=== PATIENT | male | born 1980 | race Caucasian/White ===

== ENCOUNTER 2016-09-07 10:07 | Inpatient (IN) | payer OTHER, BC ==
[~2016-09-07] VITALS: Ht 175.3 cm; Wt 58.5 kg
--- NOTE | 2016-09-07 10:37 | NUR ---
PRE ASSESSMENT: PT PRE ASSESSED IN INTAKE. HE DENIES SEIZURES. HE IS ALLERGIC TO PCN. HE REPORTS DRINKING 18-20 BEERS DAILY AND SNORTING COCAINE( 1/4 GRAM) A FEW TIMES WEEKLY. HE STATES HE HAS A 20 YEAR HISTORY BUT HAS BEEN DRINKING AND USING IN THIS PATTERN FOR 6 MONTHS ,SINCE HIS LEFT HIM . HE STATES HE IS UNABLE TO STOP DRINKING DESPITE NEGATIVE CONSEQUENCES. HE DENIES MEDICAL HX. BP 149/109 P 122 R 18 O2SAT 98% T 98.4. Addendum: 09/07/16 at 1119 by FRANCK AVELAR RN PT STATES HE LAST DRANK AT 11PM LAST NIGHT 10 BEERS AND SNORTED 1/2 GRAM COCAINE.
[2016-09-07] MEDS ORDERED: ACETAMINOPHEN 325 MG TABLET PO PRN (11:30)
[2016-09-07] MEDS ORDERED: diphenhydrAMINE 50 MG CAPSULE PO PRN (11:30)
[2016-09-07] MEDS ORDERED: MAGNESIUM HYDROXIDE 30 ML LIQUID UDC PO PRN (11:30)
[2016-09-07] MEDS ORDERED: LORAZEPAM 1 MG TABLET PO PRN (11:30)
[2016-09-07] MEDS ORDERED: LOPERAMIDE HCL 2 MG CAPSULE PO PRN ×2 (11:30)
[2016-09-07] MEDS ORDERED: THIAMINE HCL 200 MG/2 ML VIAL IM ONE (11:30)
[2016-09-07] MEDS ORDERED: LORAZEPAM 2 MG/1 ML VIAL IM PRN (11:30)
[2016-09-07] MEDS ORDERED: ONDANSETRON ODT 4 MG TAB.RAPDIS SL PRN (11:30)
[2016-09-07] MEDS ORDERED: HYDROXYZINE PAMOATE 25 MG CAPSULE PO PRN (11:30)
[2016-09-07] MEDS ORDERED: IBUPROFEN 400 MG TABLET PO PRN (11:30)
[2016-09-07] MEDS ORDERED: MIRALAX 17 GM POWD.PACK PO PRN (11:30)
[2016-09-07] MEDS ORDERED: MAG HYDROX/AL HYDROX/SIMETH 30 ML LIQUID UDC PO PRN (11:30)
[2016-09-07] MEDS ORDERED: ONDANSETRON 4 MG/2 ML VIAL IM PRN (11:30)
[2016-09-07 12:00] VITALS: BP 140/99
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
[2016-09-07 13:03] LABS: BASOPHILS % (AUTO) 0.5 % (0.0-2.0); EOSINOPHILS # (AUTO) 0.1 K/uL (0.0-0.7); EOSINOPHILS % (AUTO) 1.5 % (0.0-7.0); HEMATOCRIT 43.7 % (40-50); HEMOGLOBIN 15.3 G/DL (14.0-18.0); LYMPHOCYTES # (AUTO) 1.4 K/UL (0.8-4.8); MEAN CORPUSCULAR HEMOGLOBIN 32.4 UUG (27.0-31.0); MEAN CORPUSCULAR HGB CONC 35 g/dL (32.0-37.0); MEAN CORPUSCULAR VOLUME 92.8 FL (82.0-92.0); MONOCYTES # (AUTO) 0.8 K/UL (0.1-1.30); MONOCYTES % (AUTO) 10.8 % (0.0-11.0); NEUTROPHILS # (AUTO) 4.9 K/UL (1.8-8.9); NEUTROPHILS % (AUTO) 67.2 % (38.5-71.5); PLATELET COUNT (AUTO) 211 K/UL (150-450); RED BLOOD CELL COUNT(AUTO) 4.71 MIL/UL (4.7-6.1); RED CELL DISTRIBUTION WIDTH 12.3 % (11.5-14.5); WHITE BLOOD COUNT (AUTO) 7.2 K/UL (4.0-11.2)
[2016-09-07 13:11] LABS: *AMPHETAMINE, URINE NEGATIVE (NEGATIVE); *BARBITURATE, URINE NEGATIVE (NEGATIVE); *CANNABINOID, URINE NEGATIVE (NEGATIVE); *COCCAINE, URINE POSITIVE (NEGATIVE); *OPIATE, URINE NEGATIVE (NEGATIVE); *PHENCYCLIDINE SCREEN,URINE NEGATIVE (NEGATIVE)
[2016-09-07] MEDS: LORAZEPAM 1 MG TABLET PO PRN ×2 (13:14→15:41)
--- NOTE | 2016-09-07 13:15 | NUR ---
PRN ATIVAN1 MG PO GIVEN FOR CIWA 6. HE C/O SEVERE ANXIETY AND RESTLESSNESS. BP ELEVATED.
[2016-09-07 13:25] LABS: ALANINE AMINOTRANSFERASE 82 U/L (16-63); ALBUMIN 4.7 g/dL (3.4-5.0); ALKALINE PHOSPHATASE 70 U/L (50-136); AMYLASE 121 U/L (25-115); ASPARTATE AMINOTRANSFERASE 115 U/L (15-37); BILIRUBIN,TOTAL 0.6 mg/dL (0.2-1.0); CALCIUM 8.6 mg/dL (8.5-10.1); CARBON DIOXIDE 24 mmol/L (21-32); CHLORIDE 99 mmol/L (98-107); CREATININE 0.6 mg/dL (0.6-1.3); GFR > 130 mL/min (>60); GLUCOSE 91 mg/dL (74-106); LIPASE 287 U/L (73-393); MAGNESIUM 2.3 mg/dL (1.8-2.4); POTASSIUM 3.8 mmol/L (3.5-5.1); SODIUM SERUM 138 mmol/L (136-145); TOTAL PROTEIN, SERUM 8.4 g/dL (6.4-8.2); UREA NITROGEN, BLOOD 5 mg/dL (7-18)
[2016-09-07 13:29] LABS: ETHANOL 285 MG/DL (0-0)
[2016-09-07 13:36] LABS: THYROID STIMULATING HORMONE 1.739 mIU/mL (0.358-3.740)
[2016-09-07 13:45] VITALS: BP 122/76
--- NOTE | 2016-09-07 13:45 | NUR ---
PRN ATIVAN ONLY MILDLY EFFECTIVE. CIWA 5
--- NOTE | 2016-09-07 14:22 | NUR ---
PT DENIES HAVING A PCP.
--- NOTE | 2016-09-07 15:45 | NUR ---
PT C/O ANXIETY AND STATES "IT FEELS LIKE MY HEART IS BEATING OUT OF MY CHEST". CIWA 6.PRN ATIVAN 1 MG PO GIVEN TO MANAGE S/S OF W/D. WILL MONITOR EFFECTIVENESS.
[2016-09-07 16:00] VITALS: BP 118/78
--- NOTE | 2016-09-07 16:30 | NUR ---
PT IS ASLEEP. ATIVAN EFFECTIVE. ROBBY DEFERRED. Addendum: 09/07/16 at 1817 by FRANCK AVELAR RN PT S[place]. ROBBY 3. ATIVAN EFFECTIVE.
--- NOTE | 2016-09-07 18:19 | NUR ---
END OF SHIFT: PT ADMITTED THIS AFTERNOON FOR ETOH DEPENDENCE. HE WAS GIVEN ATIVAN 1 MG PO PRN X 2 AND EFFECTIVE. LAST CIWA 3. ENCOURAGED INCREASED FLUIDS FOR HYDRATION. BP WAS ELEVATED ON ADMISSION BUT ATIVAN EFFECTIVE IN BRINGING BP DOWN. PT IS ASLEEP NOW WITH RESPIRATIONS EVEN AND UNLABORED. CALL SCHWARTZ IN REACH. BED LOCKED AND IN LOWEST POSITION. WILL CONTINUE TO PROVIDE SUPPORT. WILL PASS SHIFT REPORT TO ONCOMING NIGHT NURSE.
--- NOTE | 2016-09-07 19:15 | NUR ---
START OF SHIFT Received 35 year old male patient admitted on 09/07/16 for ETOH dependency. Pt is full code with allergy to PCN. He denies any PMHx. He reports using ETOH (beer) 18-20 beers daily for 20 years but 6 months at this rate. His last dose was 10 beers on 09/06/16. And Cocaine (snort) 1/4 gram three-five times per week. Last dose was 1/2 gram cocaine on 09/06/16. Per endorsement pt received PRN Ativan 1 mg x2. Pt is alert and oriented x4, breathing is even and unlabored. Pt is safe with bed locked in lowest position, side rails up x2 and call light within reach. Will continue to monitor.
[2016-09-07 20:00] VITALS: BP 116/83
[2016-09-08] VITALS: BP 120/84
--- NOTE | 2016-09-08 | NUR ---
CIWA DEFERRED CIWA deferred d/t order is Q4H while awake. Pt lying in bed with eyes closed noted to be asleep. Respirations 16, breathing is even and unlabored. Safety measures in place. Will continue to monitor.
[2016-09-08 04:00] VITALS: BP 112/75
[2016-09-08] MEDS: DICYCLOMINE HCL 20 MG TABLET PO PRN (04:07)
[2016-09-08] MEDS: LORAZEPAM 1 MG TABLET PO PRN (04:08)
--- NOTE | 2016-09-08 04:08 | NUR ---
PRN ATIVAN/BENTYL Pt complains of " really bad anxiety" and abdominal cramps 12/06. PRN Ativan and Bentyl administered as ordered. CIWA:6. Respirations 16, breathing even and unlabored. Safety measures in place. Will monitor effectiveness.
--- NOTE | 2016-09-08 05:08 | NUR ---
PRN ATIVAN/BENTYL REASSESSMENT PRN medications effective. Pt lying in bed with eyes closed and is asleep. No facial grimacing noted. Respirations 16, breathing even and unlabored. Safety measures in place. Will monitor.
--- NOTE | 2016-09-08 07:18 | NUR ---
END OF SHIFT Pt is a 35 year old male patient admitted on 09/07/16 for ETOH dependency. Pt is full code with allergy to PCN. He denies any PMHx. At 0408 he received PRN Ativan and Bentyl for anxiety, and abdominal spasms. He slept a total of 7 hrs, Intake: 1091 mL, Void: x2, BM: 0. CIWA: 6. Pt remains alert and oriented x4, breathing is even and unlabored. Pt is safe with bed locked in lowest position, side rails up x2 and call light within reach. Endorsed to oncoming shift.
[2016-09-08 08:00] VITALS: BP 128/84
--- NOTE | 2016-09-08 08:15 | NUR ---
START OF SHIFT: RECEIVED PT A/O X 4. HE PRESENTS WITH ANXIOUS MOOD AND CONGRUENT AFFECT. HE REPORTS A VERY RESTLESS NIGHT SLEEP AND C/O NIGHT SWEATS,ANXIETY,IRRITABILITY AND CRAVINGS. OFFERED SUPPORT. ATIVAN TAPER IN PROGRESS. CIWA 6. ENCOURAGED REST AND INCREASED FLUIDS. PPD PLANTED TO LFA.WILL CONTINUE TO MONITOR AND PROVIDE SAFE AND SUPPORTIVE ENVIRONMENT.
[2016-09-08] MEDS: LORAZEPAM 1 MG TABLET PO SCH ×4 (08:25→22:10)
[2016-09-08] MEDS: THIAMINE HCL 100 MG TABLET PO SCH (08:26)
[2016-09-08] MEDS: MULTIVITAMINS,THERAPEUTIC TABLET PO SCH (08:26)
[2016-09-08] MEDS: FOLIC ACID 1 MG TABLET PO SCH (08:26)
[2016-09-08] MEDS ORDERED: TUBERCULIN,PURIF.PROT.DERIV. 5 TU/0.1 ML TEST ID ONE (09:00)
[2016-09-08 11:21] LABS: HCV AB <0.1 s/co ratio (0.0-0.9); HEPATITIS B CORE AB, IgM Negative (Negative); HEPATITIS B SURFACE AG Negative (Negative)
[2016-09-08 12:00] VITALS: BP 123/85
[2016-09-08 16:00] VITALS: BP 118/86
--- NOTE | 2016-09-08 17:42 | NUR ---
HELD 1700 ATIVAN. CIWA DEFERRED AT 1600 PT IS ASLEEP. RESPIRATIONS EVEN AND UNLABORED. BED LOCKED AND LOW, CALL SCHWARTZ IN REACH.
--- NOTE | 2016-09-08 18:40 | NUR ---
END OF SHIFT: PT CONTINUES ON ATIVAN TAPER. LAST CIWA DEFERRED. HELD 1700 MEDS PT WAS ASLEEP.CIWA 6 AT 1200 .HE SPENT MOST OF SHIFT RESTING IN BED. ENCOURAGED INCREASED FLUIDS. HE REPORTED ANXIETY AND REPORTED A HORRIBLE NIGHT OF SLEEP LAST NIGHT. VS WNL. WILL PASS SHIFT REPORT TO ONCOMING NURSE.
--- NOTE | 2016-09-08 19:15 | NUR ---
START OF SHIFT Received 35 year old male patient admitted on 09/07/16 for ETOH dependency. Pt is full code with allergy to PCN. Pt denies PMHx. He reports drinking ETOH (beer) 18-20 beers daily for 20 years. Last dose was 10 beers on 09/06/16. He is currently receiving 5 day Ativan taper and tolerating well. Per endorsement, pts 1700 dose of Ativan held d/t pt was sedated. Pt is alert and oriented x4. Breathing is even and unlabored, safety measures in place. Will continue to monitor.
[2016-09-08 20:00] VITALS: BP 121/81
[2016-09-09] VITALS: BP 113/77
[2016-09-09 04:00] VITALS: BP 111/72
--- NOTE | 2016-09-09 06:03 | NUR ---
PRN CLONIDINE Pt complains of anxiety and agitation. PRN Clonidine administered as ordered. Breathing even and unlabored. Safety measures in place. Will monitor effectiveness.
[2016-09-09] MEDS: CLONIDINE HCL 0.1 MG TABLET PO PRN (06:07)
--- NOTE | 2016-09-09 07:03 | NUR ---
PRN CLONIDINE REASSESSMENT PRN medication effective. Pt reports decrease in anxiety. Breathing even and unlabored, safety measures in place. Will monitor.
--- NOTE | 2016-09-09 07:12 | NUR ---
END OF SHIFT Pt is a 35 year old male patient admitted on 09/07/16 for ETOH dependency. Pt is full code with allergy to PCN. Pt denies PMHx. He is currently receiving 5 day Ativan taper and tolerating well. At 0603 pt received PRN clonidine d/t anxiety. He slept a total of 9 hrs, Intake: 500 mL, Void: x1, BM: 0, CIWA: 7. Pt remains alert and oriented x4. Breathing is even and unlabored, safety measures in place. Endorsed to oncoming shift.
[2016-09-09 08:00] VITALS: BP 138/92
--- NOTE | 2016-09-09 08:10 | NUR ---
START OF SHIFT: RECEIVED PT A/O X 4. HE PRESENTS ANXIOUS AND AGITATED. HE REPORTS A VERY RESTLESS NIGHT SLEEP AND C/O RESTLESSNESS, ANXIETY,IRRITABILITY AND TREMORS NOTED TO HANDS. PT STATES HE FEELS STIR CRAZY AND STATES HE IS THINKING ABOUT LEAVING. OFFERED SUPPORT AND EDUCATED PT ON IMPORTANCE OF COMPLETING DETOX. EDUCATED PT ON DISEASE PROCESS AND GAVE HIM EDUCATIONAL LITERATURE ON AA. HE STATES HE WILL STAY AND TRY TO 'STICK IT OUT". ATIVAN TAPER IN PROGRESS. CIWA 8. ENCOURAGED INCREASED FLUIDS AND ENCOURAGED ACTIVITY AND GROUP ATTENDANCE TODAY TO IMPROVE COPING SKILLS AND PREVENT RELAPSE. WILL CONTINUE TO MONITOR AND PROVIDE SAFE AND SUPPORTIVE ENVIRONMENT.
[2016-09-09 08:36] LABS: BASOPHILS % (AUTO) 0.7 % (0.0-2.0); EOSINOPHILS # (AUTO) 0.1 K/uL (0.0-0.7); EOSINOPHILS % (AUTO) 2.3 % (0.0-7.0); HEMATOCRIT 41.7 % (40-50); HEMOGLOBIN 14.6 G/DL (14.0-18.0); LYMPHOCYTES # (AUTO) 0.7 K/UL (0.8-4.8); LYMPHOCYTES % (AUTO) 13.3 % (20.5-51.5); MEAN CORPUSCULAR HEMOGLOBIN 32.9 UUG (27.0-31.0); MEAN CORPUSCULAR HGB CONC 35 g/dL (32.0-37.0); MEAN CORPUSCULAR VOLUME 93.8 FL (82.0-92.0); MONOCYTES # (AUTO) 0.8 K/UL (0.1-1.30); MONOCYTES % (AUTO) 14.1 % (0.0-11.0); NEUTROPHILS # (AUTO) 3.9 K/UL (1.8-8.9); NEUTROPHILS % (AUTO) 69.6 % (38.5-71.5); PLATELET COUNT (AUTO) 160 K/UL (150-450); RED BLOOD CELL COUNT(AUTO) 4.45 MIL/UL (4.7-6.1); RED CELL DISTRIBUTION WIDTH 12.1 % (11.5-14.5); WHITE BLOOD COUNT (AUTO) 5.5 K/UL (4.0-11.2)
[2016-09-09] MEDS: LORAZEPAM 1 MG TABLET PO SCH ×3 (08:54→21:05)
[2016-09-09] MEDS: buPROPion SR 100 MG TABLET.SA PO SCH (08:54)
[2016-09-09] MEDS: MULTIVITAMINS,THERAPEUTIC TABLET PO SCH (08:54)
[2016-09-09] MEDS: FOLIC ACID 1 MG TABLET PO SCH (08:54)
[2016-09-09] MEDS: THIAMINE HCL 100 MG TABLET PO SCH (08:54)
[2016-09-09 09:55] LABS: FOLIC ACID 17.3 NG/ML (8.6-58.9)
[2016-09-09 10:07] LABS: BILIRUBIN,DIRECT 0.1 mg/dL (0.0-0.2); BILIRUBIN,TOTAL 0.6 mg/dL (0.2-1.0); CALCIUM 9.4 mg/dL (8.5-10.1); CREATININE 0.7 mg/dL (0.6-1.3); POTASSIUM 3.6 mmol/L (3.5-5.1); TOTAL PROTEIN, SERUM 7.5 g/dL (6.4-8.2)
[2016-09-09 12:00] VITALS: BP 113/74
[2016-09-09 16:00] VITALS: BP 114/79
--- NOTE | 2016-09-09 19:10 | NUR ---
END OF SHIFT: PT CONTINUES ON ATIVAN TAPER. LAST CIWA 5. HE SPOKE ABOUT LEAVING AND SAID HE WAS GETTING STIR CRAZY. EDUCATED PT ON DISEASE PROCESS AND PT AGREED TO STAY. ENCOURAGED INCREASED FLUIDS. ENCOURAGED GROUP ATTENDANCE. HE ATTENDED ONE GROUP AND SPENT MOST OF SHIFT ISOLATING AND SLEEPING IN ROOM. NO PRNS REQUIRED AND HE STATES ATIVAN WAS EFFECTIVE. WILL PASS SHIFT REPORT TO ONCOMING NURSE.
--- NOTE | 2016-09-09 19:15 | NUR ---
START OF SHIFT Received 35 year old male patient admitted on 09/07/16 for ETOH and Cocaine dependency. Pt is full code with allergy to PCN. Pt reports drinking ETOH (beer) 18-20 beers daily for 20 years. Last dose was 10 beers on 09/06/16. And Cocaine snorts gram 3-5 x weekly. Last dose was gram on 09/06/16. Pt is placed on 5 day Ativan taper and tolerating well. Per endorsement, pt did not receive or request PRN medications. Pt is alert and oriented x4, breathing is even and unlabored. Pt is safe with bed locked in lowest position, side rails up x2 and call light within reach. Will continue to monitor.
[2016-09-09 20:00] VITALS: BP 108/65
[2016-09-09] MEDS: GABAPENTIN 300 MG CAPSULE PO SCH (21:05)
--- NOTE | 2016-09-09 21:05 | NUR ---
PRN BENADRYL Pt complains of inability to sleep. PRN Benadryl administered as ordered. Respirations 16, breathing even and unlabored. Safety measures in place. Will continue to monitor effectiveness.
[2016-09-09] MEDS ORDERED: GABAPENTIN 300 MG CAPSULE ONE (21:11)
--- NOTE | 2016-09-09 22:05 | NUR ---
PRN BENADRYL REASSESSMENT PRN medication effective. Pt lying in bed with eyes closed noted to be asleep. Respirations 16, breathing even and unlabored. Pt safe with bed locked in lowest position, side rails up x2 and call light within reach. Will monitor.
[2016-09-10] VITALS: BP 110/70
--- NOTE | 2016-09-10 | NUR ---
CIWA DEFERRED CIWA deferred d/t order is Q4H while awake. Pt lying in bed with eyes closed noted to be asleep. Respirations 16, breathing is even and unlabored. Safety measures in place. Will monitor.
[2016-09-10 04:00] VITALS: BP 116/81
[2016-09-10] MEDS: CLONIDINE HCL 0.1 MG TABLET PO PRN (04:36)
--- NOTE | 2016-09-10 04:37 | NUR ---
PRN CLONIDINE/VISTARIL Pt complains of anxiety/agitation. Pt reports " I just have really, really bad anxiety" PRN clonidine and Vistaril administered as ordered. Respirations 16, breathing is even and unlabored. Safety measures in place. Will continue to monitor effectiveness.
--- NOTE | 2016-09-10 05:37 | NUR ---
PRN CLONIDINE/VISTARIL REASSESSMENT PRN medication effective. Pt lying in bed with eyes closed noted to be asleep. No facial grimacing noted. Pt safe with bed locked in lowest position, side rails up x2 and call light within reach. Will continue to monitor.
--- NOTE | 2016-09-10 07:15 | NUR ---
CONTINUATION OF CARE Pt is a 35 year old male patient admitted on 09/07/16 for ETOH and Cocaine dependency. Pt is full code with allergy to PCN. He is placed on 5 day Ativan taper, currently on day 3/5 and tolerating well. At 210 he received PRN Benadryl. At 043 he received PRN clonidine and Vistaril for anxiety/agitation. He slept a total of 8 hrs, Intake: 500 mL, Void: x1, BM:0. CIWA: 6. Pt is in stable condition. Pt safe with bed locked in lowest position, side rails up x2 and call light within reach. Will continue to monitor.
[2016-09-10 08:00] VITALS: BP 108/87
[2016-09-10] MEDS: THIAMINE HCL 100 MG TABLET PO SCH (08:08)
[2016-09-10] MEDS: DICYCLOMINE HCL 20 MG TABLET PO PRN (08:08)
[2016-09-10] MEDS: MULTIVITAMINS,THERAPEUTIC TABLET PO SCH (08:08)
--- NOTE | 2016-09-10 08:08 | NUR ---
PRN BENTYL Pt complains of abdominal cramps 09/05. PRN Bentyl administered as ordered. Breathing even and unlabored. Safety measures in place. Will continue to monitor effectiveness.
[2016-09-10] MEDS: FOLIC ACID 1 MG TABLET PO SCH (08:09)
[2016-09-10] MEDS: GABAPENTIN 300 MG CAPSULE PO SCH (08:09)
[2016-09-10] MEDS: buPROPion SR 100 MG TABLET.SA PO SCH (08:09)
[2016-09-10] MEDS ORDERED: LORAZEPAM 1 MG TABLET PO SCH (09:00)
--- NOTE | 2016-09-10 09:05 | NUR ---
PRN BENTYL REASSESSMENT PRN medication effective. Pt reports abdominal cramps decreased /. Pt states " I feel a lot better." Breathing is even and unlabored. Respirations 16. Safety measures in place. Will continue to monitor.
--- NOTE | 2016-09-10 09:30 | NUR ---
Received report from Susy OVERTON. Patient is a 35/M admitted to [facility] on 09/07/16 for ETOH and stimulant withdrawal. He is currently on day 3 of his 5 day Ativan taper. Skin intact, ambulatory, and A&O x 4. Allergy to PCN. Denies medical history. Bentyl PRN administered by previous nurse and noted to be effective. Last CIWA was 7. Patient is currently awake in bed resting. Side rails up x 4 and bed in lowest position. Will continue to monitor to monitor.
--- NOTE | 2016-09-10 10:45 | NUR ---
Patient visibly upset and stated that he wants to leave AMA right now. He reported that he spoke with his and she wants him to leave. He also stated that he feels like he is in retirement and he wants to go to another detox in [place]. Dr. Fortune aware
--- NOTE | 2016-09-10 11:03 | NUR ---
Patient left the unit AMA at 1103 accompanied by his . Dr. Fortune present at the time. Risks of leaving AMA explained to the patient and he continued to state that he is leaving to another detox. Multiple members of the staff tried to reason with him but he was adamant about his decision. All belongings returned to patient.
[2016-09-11] MEDS ORDERED: LORAZEPAM 1 MG TABLET PO SCH (09:00)
[2016-09-12] MEDS ORDERED: LORAZEPAM 1 MG TABLET PO SCH (09:00)
== END 2016-09-10 11:03 | disposition left against medical advice (07) | DRG 894 ==
LOC: SRC 10:07
PROVIDERS: ADMIT Internal Medicine; ATTEND Internal Medicine
PROC: HZ2ZZZZ Detoxification Services for Substance Abuse Treatment (ICD-10-PCS; principal; 2016-09-07)
PROC: HZ31ZZZ Individual Counseling for Substance Abuse Treatment, Behavioral (ICD-10-PCS; 2016-09-10)
DX: F10.230 Alcohol dependence with withdrawal, uncomplicated (principal); K85.20 Alcohol induced acute pancreatitis without necrosis or infection; F33.1 Major depressive disorder, recurrent, moderate; F10.220 Alcohol dependence with intoxication, uncomplicated; K70.10 Alcoholic hepatitis without ascites; Y90.9 Presence of alcohol in blood, level not specified; Z81.1 Family history of alcohol abuse and dependence; F90.9 Attention-deficit hyperactivity disorder, unspecified type; F41.9 Anxiety disorder, unspecified; F17.210 Nicotine dependence, cigarettes, uncomplicated; F14.10 Cocaine abuse, uncomplicated; D75.89 Other specified diseases of blood and blood-forming organs
CPT/HCPCS: 36415; 80307; 80353; 82306; 82746; 83690; 83735; 84100; 84443; 85025; 86580; 86592; 86705; 86803; 87340; 87806; A4663; G6040-TC; J3411; Q0163